=== PATIENT | female | born 1965 | race Caucasian/White ===

== ENCOUNTER 2018-06-12 07:23 | Day surgery (SDC) | payer OTHER ==
[~2018-06-12] VITALS: Ht 154.9 cm; Wt 68.5 kg
[2018-06-12 08:59] VITALS: Ht 154.9 cm; Wt 68.5 kg
[2018-06-12] MEDS ORDERED: NO ACTIVE MEDS (09:05)
[2018-06-12 09:37] VITALS: BP 125/77; PULSE 69; RESP 16
[2018-06-12] MEDS ORDERED: FENTAnyl 50 MCG/ML VIAL ONE (10:23)
[2018-06-12] MEDS ORDERED: MIDAZOLAM 1 MG/ML 2 ML INJ ONE (10:23)
== END 2018-07-12 11:48 | disposition home or self-care (01) ==
LOC: SDS 07:23 → GIL 07:23
PROVIDERS: ATTEND Internal Medicine Gastroenterology
DX: Z12.11 Encounter for screening for malignant neoplasm of colon (principal)
CPT/HCPCS: 45378; J2250; J3010; Z7610